=== PATIENT | male | born 2000 | race Caucasian/White ===

== ENCOUNTER 2022-11-22 09:16 | Emergency (ER) | payer OTHER ==
[2022-11-22] MEDS ORDERED: Diphtheria,Pertussis(Acell),Tetanus Vaccine 0.5 ML Syringe IM ONE (10:13)
[2022-11-22] MEDS ORDERED: Lidocaine 1% 10 ML MDV INJECT ONE (10:13)
== END 2022-11-22 11:45 | disposition home or self-care (01) ==
LOC: JD.ED 09:16
DX: S01.412A Laceration without foreign body of left cheek and temporomandibular area, initial encounter (principal); Z23 Encounter for immunization; W55.22XA Struck by cow, initial encounter; Y92.89 Other specified places as the place of occurrence of the external cause
CPT/HCPCS: 12013; 70450; 70450-26; 90471; 90715; 99283; 99283-25; J3490